=== PATIENT | male | born 1970 | race Caucasian/White ===

== ENCOUNTER 2024-01-11 08:29 | Inpatient (IN) | payer OTHER ==
[~2024-01-11] VITALS: Ht 170.2 cm; Wt 54.4 kg
[2024-01-11] VITALS (24 sets, daily range): BP systolic 96–187; BP diastolic 56–137; PULSE 96–121; RESP 17–29; TEMP 36.6696–36.78072; O2SAT 95–100
[2024-01-11 09:32] LABS: BASOPHILS % 0.2 % (0.0-2.0); DIFFERENTIAL COMMENT 0; HEMOGLOBIN. 14.3 g/dL (14.0-18.0); LYMPHOCYTES % 14.4 % (20.0-50.0); MEAN CORPUSCULAR HGB CONC 30.5 g/dL (31.0-37.0); MEAN CORPUSCULAR VOLUME 104.9 fL (80.0-94.0); MEAN PLATELET VOLUME 8.9 fl (7.4-10.4); MONOCYTES % 9.8 % (2.0-8.0); NEUTROPHILS % 75.6 % (40.0-76.0); PLATELET 327 x1000/uL (130-400); RED BLOOD CELL COUNT 4.48 mill/uL (4.7-6.1); RED CELL DISTRIBUTION WIDTH 17.6 % (11.6-14.6); WHITE BLOOD COUNT 17.7 x1000/uL (4.5-11.0)
[2024-01-11 09:37] LABS: CHLORIDE 102 mEq/L (98-107); POTASSIUM 3.1 mEq/L (3.5-5.1); SODIUM 136 mEq/L (136-145)
[2024-01-11 09:39] LABS: CALCIUM 10.5 mg/dL (8.7-10.4)
[2024-01-11 09:43] LABS: CREATININE 1.8 mg/dL (0.6-1.3)
[2024-01-11 09:44] LABS: UREA NITROGEN BLOOD 17 mg/dL (9-23)
[2024-01-11 09:44] LABS: BG BASE EXCESS -29.3 mmol/L (-2.0-3.0); BG CARBOXYHEMOGLOBIN 0.3 % (0.5-1.5); BG DEOXYHEMOGLOBIN 0.8 % (0.0-5.0); BG FRACTION INSPIRED OXYGEN 100; BG HCO3 ACT 2.2 mmol/L (21.0-28.0); BG METHEMOGLOBIN 0.3 % (0.5-1.5); BG OXYGEN SATURATION 99.2 % (94.0-98.0); BG OXYHEMOGLOBIN 98.6 % (94.0-98.0); BG PCO2 11.4 mmHg (35.0-48.0); BG PH 6.901 (7.350-7.450); BG PO2 230.6 mmHg (83.0-108.0); BG SAMPLE SITE RIGHT BRACHIAL; BG TOTAL HEMOGLOBIN 14.1 g/dL (13.5-17.5); BG VENT MODE MASK - NRB
[2024-01-11 09:45] LABS: ALANINE AMINOTRANSFERASE 112 IU/L (10-49); ASPARTATE AMINOTRANSFERASE 126 IU/L (<34); TROPONIN I HIGH SENSITIVITY 6 ng/L (3.0-53)
[2024-01-11 09:46] LABS: BILIRUBIN DIRECT 0.2 mg/dL (<=3.0); BILIRUBIN TOTAL 0.5 mg/dL (0.1-1.0); PROTEIN TOTAL 8.6 g/dL (6.0-8.3)
[2024-01-11 09:47] LABS: GLUCOSE 699 mg/dL (70-105)
[2024-01-11 09:48] LABS: CARBON DIOXIDE < 10 mEq/L (21-32)
[2024-01-11] MEDS ORDERED: DEXTROSE 50% WATER 50ML SYRINGE IV PRN ×2 (10:00→13:15)
[2024-01-11] MEDS ORDERED: POTASSIUM CHLORIDE 40 MEQ in SODIUM CHLORIDE 0.9% 230 ML IV PRN (10:00)
[2024-01-11] MEDS ORDERED: BLOOD SUGAR DIAGNOSTIC STRIP TEST PRN ×2 (10:00→13:15)
[2024-01-11] MEDS ORDERED: LACTATED RINGERS 1,000 ML IV SCH ×2 (10:00)
[2024-01-11] MEDS: BLOOD SUGAR DIAGNOSTIC STRIP TEST SCH ×2 (10:09→13:15)
[2024-01-11] MEDS: PIPERACILLIN/TAZO 3.375G/50ML 50 ML IV SCH (10:30)
[2024-01-11] MEDS: KCL 20MEQ/100ML X 2 FOR TOTAL KCL 40MEQ/200ML IV SCH (10:51)
[2024-01-11 11:40] LABS: BETA HYDROXYBUTYRATE 11.8 mMol/L (0.0-0.3)
[2024-01-11 12:36] LABS: TROPONIN I HIGH SENSITIVITY 10 ng/L (3.0-53)
[2024-01-11] MEDS ORDERED: MORPHINE SULFATE 4 MG/ML INJ (FOR IV/IM USE) IM ONE (13:00)
[2024-01-11] MEDS: LACTATED RINGERS 1,000 ML IV SCH ×2 (13:01→13:34)
[2024-01-11] MEDS ORDERED: INSULIN REGULAR (DRIP) 100 UNITS in SODIUM CHLORIDE 0.9% 99 ML IV SCH (13:15)
[2024-01-11] MEDS ORDERED: CLONIDINE 0.1MG TABLET PO PRN (13:30)
[2024-01-11] MEDS ORDERED: DOCUSATE SODIUM 100MG CAPSULE PO PRN (13:30)
[2024-01-11] MEDS ORDERED: INSULIN REGULAR 100U/100ML PMX 100 ML IV SCH (13:30)
[2024-01-11] MEDS ORDERED: ACETAMINOPHEN 325MG TABLET PO PRN ×2 (13:30)
[2024-01-11] MEDS ORDERED: IPRATROPIUM/ALBUTEROL 0.5-3(2.5)MG/3ML NEB HHN PRN (13:30)
[2024-01-11] MEDS ORDERED: PIPERACILLIN/TAZO 3.375G/50ML 50 ML IV SCH (14:00)
[2024-01-11 14:10] LABS: BG BASE EXCESS -29.3 mmol/L (-2.0-3.0); BG CARBOXYHEMOGLOBIN 0.1 % (0.5-1.5); BG DEOXYHEMOGLOBIN 0.9 % (0.0-5.0); BG FRACTION INSPIRED OXYGEN 36; BG METHEMOGLOBIN 0.3 % (0.5-1.5); BG OXYGEN SATURATION 99.1 % (94.0-98.0); BG OXYHEMOGLOBIN 98.7 % (94.0-98.0); BG PH 6.909 (7.350-7.450); BG PO2 189.5 mmHg (83.0-108.0); BG SAMPLE SITE RIGHT RADIAL; BG VENT MODE NASAL CANNULA
[2024-01-11 15:16] LABS: CHLORIDE 106 mEq/L (98-107); POTASSIUM 3.8 mEq/L (3.5-5.1); SODIUM 138 mEq/L (136-145)
[2024-01-11 15:17] LABS: CALCIUM 9.7 mg/dL (8.7-10.4)
[2024-01-11 15:22] LABS: CREATININE 1.6 mg/dL (0.6-1.3); UREA NITROGEN BLOOD 18 mg/dL (9-23)
[2024-01-11] MEDS: INSULIN REGULAR 100U/100ML PMX 100 ML IV SCH (15:27)
[2024-01-11] MEDS: SODIUM CHLORIDE 0.9% 1,000 ML IV SCH (15:35)
[2024-01-11 15:49] LABS: CARBON DIOXIDE < 10 mEq/L (21-32)
[2024-01-11 15:50] LABS: GLUCOSE 665 mg/dL (70-105)
[2024-01-11 16:02] LABS: PHOSPHORUS 5.7 mg/dL (2.5-4.9)
[2024-01-11 17:05] LABS: GLUCOSE URINE 3+ (NEGATIVE); KETONES URINE 4+ (NEGATIVE)
[2024-01-11 17:15] LABS: COLOR URINE YELLOW (YELLOW)
[2024-01-11 17:16] LABS: CLARITY URINE CLEAR (CLEAR); PROTEIN URINE TRACE (NEGATIVE); SPECIFIC GRAVITY URINE 1.025 (1.005-1.030)
[2024-01-11 17:17] LABS: LEUKOCYTE ESTERASE URINE NEGATIVE (NEGATIVE); NITRITE URINE NEGATIVE (NEGATIVE); OCCULT BLOOD URINE TRACE (NEGATIVE); UROBILINOGEN URINE 0.2 E.U./dL (0.2-1.0)
[2024-01-11 17:18] LABS: *AMPHETAMINES SCREEN URINE NEGATIVE (NEGATIVE); *BARBITURATES SCREEN URINE NEGATIVE (NEGATIVE); *BENZODIAZEPINES SCREEN URINE NEGATIVE (NEGATIVE); *COCAINE SCREEN URINE NEGATIVE (NEGATIVE); CANNABINOID URINE SCREEN NEGATIVE (NEGATIVE); ECSTASY MDMA SCREEN URINE NEGATIVE (NEGATIVE); METHADONE URINE SCREEN NEGATIVE (NEGATIVE); OPIATES URINE SCREEN NEGATIVE (NEGATIVE); PHENCYCLIDINE URINE SCREEN NEGATIVE (NEGATIVE)
[2024-01-11 17:20] LABS: RBC URINE NONE SEEN /hpf (0-2); SQUAMOUS EPITHELIAL CELL URINE NONE SEEN /lpf (RARE/1+); WBC URINE 0-2 /hpf (0-2)
[2024-01-11 17:21] LABS: BACTERIA URINE TRACE; COARSE GRANULAR CASTS URINE 0-5 /lpf
[2024-01-11] MEDS: SODIUM BICARBONATE 100 MEQ in SODIUM CHLORIDE 0.45% 900 ML IV SCH (17:53)
[2024-01-11] MEDS: INSULIN REGULAR (HUMULIN R) 1000UNITS/10ML VIAL IV NR (18:05)
[2024-01-11 21:06] LABS: CHLORIDE 117 mEq/L (98-107)
[2024-01-11 21:07] LABS: CALCIUM 9.6 mg/dL (8.7-10.4)
[2024-01-11 21:12] LABS: CREATININE 1.4 mg/dL (0.6-1.3); UREA NITROGEN BLOOD 16 mg/dL (9-23)
[2024-01-11 21:14] LABS: LACTIC ACID 3.2 mmol/L (0.4-2.0)
[2024-01-11 21:21] LABS: SODIUM 149 mEq/L (136-145)
[2024-01-11 21:22] LABS: GLUCOSE 361 mg/dL (70-105)
[2024-01-11 21:24] LABS: POTASSIUM 2.3 mEq/L (3.5-5.1)
[2024-01-11 21:25] LABS: CARBON DIOXIDE < 10 mEq/L (21-32); PHOSPHORUS 0.4 mg/dL (2.5-4.9)
[2024-01-11 21:30] LABS: HEPATITIS B SURFACE ANTIGEN NEGATIVE (Negative)
[2024-01-11 21:51] LABS: HEPATITIS A AB IGM NEGATIVE (Negative); HEPATITIS B CORE AB IGM NEGATIVE (Negative)
[2024-01-11 21:52] LABS: HEPATITIS C AB NON REACTIVE (Neg) (Negative)
[2024-01-11] MEDS: KCL 20MEQ/100ML PREMIX 100 ML IV SCH (22:03)
[2024-01-12] VITALS (70 sets, daily range): BP systolic 90–176; BP diastolic 56–114; PULSE 81–123; RESP 7–30; TEMP 36.44736–37.00296; O2SAT 96–100
[2024-01-12 01:04] LABS: CHLORIDE 119 mEq/L (98-107); SODIUM 151 mEq/L (136-145)
[2024-01-12 01:06] LABS: CALCIUM 9.8 mg/dL (8.7-10.4)
[2024-01-12 01:10] LABS: CREATININE 1.2 mg/dL (0.6-1.3); GLUCOSE 250 mg/dL (70-105)
[2024-01-12] MEDS: SODIUM PHOSPHATE 30 MMOL in SODIUM CHLORIDE 0.9% 490 ML IV NR (01:10)
[2024-01-12 01:11] LABS: UREA NITROGEN BLOOD 14 mg/dL (9-23)
[2024-01-12] MEDS: DEXT 5%/0.9% NACL 1,000 ML IV SCH (01:14)
[2024-01-12 01:22] LABS: POTASSIUM 2.3 mEq/L (3.5-5.1)
[2024-01-12 01:23] LABS: CARBON DIOXIDE < 10 mEq/L (21-32)
[2024-01-12 01:26] LABS: PHOSPHORUS 0.3 mg/dL (2.5-4.9)
[2024-01-12 01:32] LABS: BG BASE EXCESS -12.9 mmol/L (-2.0-3.0); BG CARBOXYHEMOGLOBIN 0.8 % (0.5-1.5); BG DEOXYHEMOGLOBIN 2.3 % (0.0-5.0); BG FRACTION INSPIRED OXYGEN 21; BG HCO3 ACT 9.9 mmol/L (21.0-28.0); BG METHEMOGLOBIN 0.3 % (0.5-1.5); BG OXYGEN SATURATION 97.7 % (94.0-98.0); BG OXYHEMOGLOBIN 96.6 % (94.0-98.0); BG PCO2 17.9 mmHg (35.0-48.0); BG PH 7.362 (7.350-7.450); BG SAMPLE SITE RIGHT RADIAL; BG TOTAL HEMOGLOBIN 13.2 g/dL (13.5-17.5); BG VENT MODE ROOM AIR
[2024-01-12] MEDS: DEXT 5%/0.45% NACL 1000ML 1,000 ML IV SCH (03:07)
[2024-01-12] MEDS: ONDANSETRON HCL 4MG/2ML INJ IV PRN (03:34)
[2024-01-12] MEDS: KCL 20MEQ/100ML PREMIX 100 ML IV PRN (05:55)
[2024-01-12 06:46] LABS: HEMATOCRIT. 37.5 % (42.0-52.0); HEMOGLOBIN. 12.9 g/dL (14.0-18.0); MEAN CORPUSCULAR HEMOGLOBIN 32.4 pg (28.0-32.0); MEAN CORPUSCULAR HGB CONC 34.5 g/dL (31.0-37.0); MEAN CORPUSCULAR VOLUME 93.9 fL (80.0-94.0); MEAN PLATELET VOLUME 7.9 fl (7.4-10.4); PLATELET 218 x1000/uL (130-400); RED CELL DISTRIBUTION WIDTH 15.4 % (11.6-14.6); WHITE BLOOD COUNT 12.4 x1000/uL (4.5-11.0)
[2024-01-12 06:49] LABS: CHLORIDE 119 mEq/L (98-107); SODIUM 153 mEq/L (136-145)
[2024-01-12 06:50] LABS: CALCIUM 9.7 mg/dL (8.7-10.4); CARBON DIOXIDE 17 mEq/L (21-32)
[2024-01-12 06:55] LABS: GLUCOSE 167 mg/dL (70-105); UREA NITROGEN BLOOD 11 mg/dL (9-23)
[2024-01-12 06:57] LABS: ALANINE AMINOTRANSFERASE 95 IU/L (10-49); ALBUMIN 4.2 g/dL (3.2-4.8); ASPARTATE AMINOTRANSFERASE 60 IU/L (<34); BILIRUBIN TOTAL 0.4 mg/dL (0.1-1.0); PROTEIN TOTAL 7.3 g/dL (6.0-8.3)
[2024-01-12 07:03] LABS: DIFFERENTIAL COMMENT 1
[2024-01-12 08:45] LABS: PHOSPHORUS < 0.3 mg/dL (2.5-4.9)
[2024-01-12 08:46] LABS: POTASSIUM 2.1 mEq/L (3.5-5.1)
[2024-01-12] MEDS ORDERED: SODIUM PHOSPHATE 15 MMOL in DEXT 5% WATER 245 ML IV ONE (10:00)
[2024-01-12] MEDS: POTASSIUM CHLORIDE 40 MEQ in SODIUM CHLORIDE 0.9% 230 ML IV PRN (10:47)
[2024-01-12] MEDS: SODIUM PHOSPHATE 15 MMOL in SODIUM CHLORIDE 0.9% 245 ML IV PRN (10:48)
[2024-01-12] MEDS: POTASSIUM CHLORIDE 20MEQ TABLET SR PO NR (10:51)
[2024-01-12] MEDS: KCL 20MEQ/100ML PREMIX 100 ML IV SCH (10:57)
[2024-01-12 11:05] LABS: CHLORIDE 122 mEq/L (98-107); SODIUM 154 mEq/L (136-145)
[2024-01-12 11:06] LABS: CALCIUM 9.6 mg/dL (8.7-10.4); CARBON DIOXIDE 15 mEq/L (21-32)
[2024-01-12 11:11] LABS: CREATININE 0.9 mg/dL (0.6-1.3); GLUCOSE 126 mg/dL (70-105); UREA NITROGEN BLOOD 11 mg/dL (9-23)
[2024-01-12 11:22] LABS: POTASSIUM 2.1 mEq/L (3.5-5.1)
[2024-01-12 13:51] LABS: CHLORIDE 118 mEq/L (98-107); SODIUM 151 mEq/L (136-145)
[2024-01-12 13:52] LABS: CARBON DIOXIDE 17 mEq/L (21-32)
[2024-01-12 13:57] LABS: UREA NITROGEN BLOOD 12 mg/dL (9-23)
[2024-01-12 14:06] LABS: GLUCOSE 277 mg/dL (70-105)
[2024-01-12 14:16] LABS: POTASSIUM 1.9 mEq/L (3.5-5.1)
[2024-01-12] MEDS: MAGNESIUM 2 G PREMIX 50 ML IV PRN (14:51)
[2024-01-12] MEDS: SODIUM CHLORIDE 0.45% 1,000 ML IV SCH (14:51)
[2024-01-12 15:58] LABS: ANISOCYTOSIS 1+; PLATELET ESTIMATE NORMAL
[2024-01-12 17:52] LABS: CHLORIDE 122 mEq/L (98-107); POTASSIUM 3.5 mEq/L (3.5-5.1); SODIUM 149 mEq/L (136-145)
[2024-01-12 17:53] LABS: CALCIUM 6.5 mg/dL (8.7-10.4); CARBON DIOXIDE 12 mEq/L (21-32)
[2024-01-12 17:58] LABS: CREATININE 0.7 mg/dL (0.6-1.3); GLUCOSE 250 mg/dL (70-105); UREA NITROGEN BLOOD 9 mg/dL (9-23)
[2024-01-12 18:00] LABS: PHOSPHORUS 1.1 mg/dL (2.5-4.9)
[2024-01-12] MEDS: FISH OIL/OMEGA-3 FATTY ACIDS 1000MG CAPSULE PO SCH (18:52)
[2024-01-12] MEDS ORDERED: KCL 20MEQ/100ML PREMIX 100 ML IV PRN (19:00)
[2024-01-12] MEDS ORDERED: KCL 20MEQ/100ML PREMIX 100 ML IV SCH (19:00)
[2024-01-12] MEDS: ATORVASTATIN CALCIUM 40MG TABLET PO SCH (20:13)
[2024-01-12 20:35] LABS: AMYLASE 59 IU/L (30-118)
[2024-01-12 22:46] LABS: CHLORIDE 113 mEq/L (98-107); SODIUM 147 mEq/L (136-145)
[2024-01-12 22:47] LABS: CARBON DIOXIDE 23 mEq/L (21-32)
[2024-01-12 22:48] LABS: CALCIUM 8.7 mg/dL (8.7-10.4)
[2024-01-12 22:52] LABS: CREATININE 0.9 mg/dL (0.6-1.3); GLUCOSE 180 mg/dL (70-105)
[2024-01-12 22:53] LABS: UREA NITROGEN BLOOD 9 mg/dL (9-23)
[2024-01-12 22:55] LABS: PHOSPHORUS 2.4 mg/dL (2.5-4.9)
[2024-01-12 23:01] LABS: POTASSIUM 2.5 mEq/L (3.5-5.1)
== END 2024-01-12 23:00 | disposition short-term general hospital (02) | DRG 871 ==
LOC: ER 08:29 → MICUNO 10:03
PROVIDERS: ADMIT Internal Medicine; ATTEND Internal Medicine
DX: A41.9 Sepsis, unspecified organism (principal); E10.10 Type 1 diabetes mellitus with ketoacidosis without coma; G93.41 Metabolic encephalopathy; E87.0 Hyperosmolality and hypernatremia; N17.9 Acute kidney failure, unspecified; D64.9 Anemia, unspecified; E86.0 Dehydration; E83.52 Hypercalcemia; E87.6 Hypokalemia; K76.0 Fatty (change of) liver, not elsewhere classified; E83.39 Other disorders of phosphorus metabolism; R74.01 Elevation of levels of liver transaminase levels; E78.1 Pure hyperglyceridemia; Z79.4 Long term (current) use of insulin; Z78.1 Physical restraint status
CPT/HCPCS: 36415; 36600; 71045; 76705; 76770; 80048; 80053; 80061; 80076; 80305; 81003; 82010; 82150; 82375; 82805; 82962; 83036; 83605; 83735; 83930; 84100; 84145; 84484; 85025; 86705; 86709; 87340; 93005; 99291; J1815; J2405; J2543; J3475; J3480; J3490; J7030; J7040; J7050